=== PATIENT | male | born 1960 | race Caucasian/White ===

== ENCOUNTER 2018-10-07 01:43 | Outpatient (CLI) | payer MEDICARE, SELFPAY ==
[2018-10-07 13:26] LABS: ALT 42 U/L (12-78); AST 43 U/L (15-37); Albumin 4.1 g/dL (3.4-5.0); Alkaline Phosphatase 62 U/L (46-116); Anion Gap 9.7 mmol/L (3-11); BUN 11 mg/dL (7-18); Bilirubin, Total 0.6 mg/dL (0.2-1.0); CO2 28.3 mmol/L (21.0-32.0); CREATININE 0.45 mg/dL (0.70-1.30); Calcium 9.6 mg/dL (8.5-10.1); Chloride 103 mmol/L (98-107); Glucose 107 mg/dL (70-100); Potassium 4.4 mmol/L (3.5-5.1); Sodium 141 mmol/L (136-145); Total Protein 6.7 g/dL (6.4-8.2)
== END 2018-10-07 02:03 ==
PROVIDERS: PCP Family Medicine; Visit Provider Family Medicine
DX: E88.40 Mitochondrial metabolism disorder, unspecified (principal)
CPT/HCPCS: 36415; 80053

== ENCOUNTER 2018-10-10 01:44 | Outpatient (CLI) | payer MEDICARE, SELFPAY ==
--- NOTE | 2018-10-10 10:15 | MERGE_ITS ---
*[facility]* *[facility]* [address] [place] [address] Date of study: 10/10/2018 Transthoracic Echocardiography M-mode, complete 2D, complete spectral Doppler, and color Doppler *STUDY CONCLUSIONS* Summary: 1. Left ventricle: The cavity size was normal. Wall thickness was normal. Systolic function was normal. The estimated ejection fraction was 55-60%. Wall motion was normal; there were no regional wall motion abnormalities. 2. Right ventricle: The cavity size was normal. Systolic function was normal. 3. Inferior vena cava: The vessel was patent and normal in size. The respirophasic diameter changes were in the normal range (greater than or equal to 50%), consistent with normal central venous pressure. *PATIENT PRESENTATION* Height: 188cm ((74in) ) S/D Pressure: 115 / 75 Weight: 68kg ((149.7lb) ) BSA: 1.87m^2 Test start time: 10:30 AM. Test stop time: 11:30 AM. PERFORMING Unknown ORDERING Jonnie Norris REFERRING Jonnie Norris PERFORMING [facility] [address] LIGHT INSPECTOR RT Joanna Coronado)(NAKITA)RASHEEDA *PROCEDURE DATA* Procedure information: The patient was identified by two identifiers. This study was interpreted by [facility]. Pertinent images and digital data are archived for permanent storage and are available for subsequent review. Comparison was made to the study of 03/28/2016. Study status: Routine. Transthoracic echocardiography. M-mode, complete 2D, complete spectral Doppler, and color Doppler. A Transthoracic Echocardiogram was performed. Scanning was performed from the parasternal, apical, subcostal, and suprasternal notch acoustic windows. Images were obtained using an [id number] cardiac ultrasound machine. Image quality was adequate. Study completion: The patient tolerated the procedure well. There were no complications. 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 Wall thickness was normal. Systolic function was normal. The estimated ejection fraction was 55-60%. Wall motion was normal; there were no regional wall motion abnormalities. Findings consistent with diastolic dysfunction. There was no evidence of elevated ventricular filling pressure by Doppler parameters. Aortic valve: Trileaflet; mildly thickened leaflets. Mobility was not restricted. Doppler: Transvalvular velocity was within the normal range. There was no stenosis. There was no significant regurgitation. VTI ratio of LVOT to aortic valve: 0.8. Valve area (VTI): 2.5cm^2. Indexed valve area (VTI): 1.3cm^2/m^2. Peak velocity ratio of LVOT to aortic valve: 0.82. Valve area (Vmax): 2.6cm^2. Indexed valve area (Vmax): 1.4cm^2/m^2. Mean velocity ratio of LVOT to aortic valve: 0.79. Valve area (Vmean): 2.5cm^2. Indexed valve area (Vmean): 1.3cm^2/m^2. Mean gradient (S): 3.8mm Hg. Peak gradient (S): 6.6mm Hg. Aorta: Aortic root: The aortic root was normal in size. Ascending aorta: The ascending aorta was normal in size. Mitral valve: Mildly thickened leaflets. Mobility was not restricted. Doppler: Transvalvular velocity was within the normal range. There was no evidence for stenosis. There was trivial regurgitation. Valve area by pressure half-time: 3.6cm^2. Indexed valve area by pressure half-time: 1.9cm^2/m^2. Peak gradient (D): 2.3mm Hg. Left atrium: The atrium was normal in size. Right ventricle: The cavity size was normal. Systolic function was normal. Pulmonic valve: The pulmonary valve appears to be grossly normal. Doppler: Transvalvular velocity was within the normal range. There was no evidence for stenosis. There was trivial regurgitation. Tricuspid valve: Structurally normal valve. Doppler: Transvalvular velocity was within the normal range. There was no evidence for stenosis. There was trivial regurgitation. Pulmonary artery: The main pulmonary artery was normal-sized. Pulmonary systolic pressure was within the normal range, in the range of 20mm Hg to 25mm Hg. Right atrium: The atrium was normal in size. Pericardium: There was no pericardial effusion. Systemic veins: Inferior vena cava: Well visualized. The vessel was patent and normal in size. The respirophasic diameter changes were in the normal range (greater than or equal to 50%), consistent with normal central venous pressure. Baseline ECG: Normal sinus rhythm. Measurements Left ventricle Value Reference LV ID, ED, PLAX 4.4 cm 3.5 - 6.0 LV ID, ES, PLAX 3.0 cm 2.1 - 4.0 LV PW thickness, ED, PLAX 1.0 cm LV end-diastolic volume, 1-p A2C 99 ml LV ejection fraction, 1-p A2C 56 % LV end-diastolic volume, 1-p A4C 64 ml LV ejection fraction, 1-p A4C 61 % LV e', lateral 0.128 m/sec LV E/e', lateral 6 LV e', medial 0.101 m/sec LV E/e', medial 8 LV e', average 0.114 m/sec LV E/e', average 7 Ventricular septum Value Reference IVS thickness, ED, PLAX 1.0 cm LVOT Value Reference LVOT ID, A-P 2.0 cm LVOT area 3.1 cm^2 LVOT peak velocity, S 1.06 m/sec LVOT mean velocity, S 0.74 m/sec LVOT VTI, S 20.7 cm LVOT peak gradient, S 4.5 mm Hg LVOT mean gradient, S 2.4 mm Hg Stroke volume (SV), LVOT DP 64 ml Stroke index (SV/bsa), LVOT DP 34 ml/m^2 Aortic valve Value Reference Aortic valve peak velocity, S 1.3 m/sec Aortic valve mean velocity, S 0.93 m/sec Aortic valve VTI, S 26.0 cm Aortic mean gradient, S 3.8 mm Hg Aortic peak gradient, S 6.6 mm Hg VTI ratio, LVOT/AV 0.8 Aortic valve area, VTI 2.5 cm^2 Velocity ratio, peak, LVOT/AV 0.82 Aortic valve area, peak velocity 2.6 cm^2 Velocity ratio, mean, LVOT/AV 0.79 Aortic valve area, mean velocity 2.5 cm^2 Aortic valve area/bsa, mean velocity 1.3 cm^2/m^2 Aorta Value Reference Aortic root ID, ED 3.7 cm Ascending aorta ID, A-P, S 3.4 cm Left atrium Value Reference LA ID, A-P, ES 1.9 cm LA ID/bsa, A-P 1.0 cm/m^2 <=2.2 LA area, ES, A4C 19 cm^2 8.8 - 23.4 LA area, ES, A2C 18 cm^2 LA volume/bsa, ES, 1-p A4C 28 ml/m^2 LA volume, ES, 2-p 58 ml LA volume/bsa, ES, 2-p 31 ml/m^2 LA/aortic root ratio 0.52 Mitral valve Value Reference Mitral E-wave peak velocity 0.75 m/sec Mitral A-wave peak velocity 0.57 m/sec Mitral deceleration time 214 ms 150 - 230 Mitral pressure half-time 62 ms Mitral peak gradient, D 2.3 mm Hg Mitral E/A ratio, peak 1.32 Mitral valve area, PHT, DP 3.6 cm^2 Pulmonary veins Value Reference Pulmonary vein peak velocity, S 0.45 m/sec Pulmonary vein peak velocity, D 0.45 m/sec Pulmonary vein velocity ratio, peak, 1 S/D Pulmonary vein A-wave reversal peak 0.53 m/sec velocity Tricuspid valve Value Reference Tricuspid regurg peak velocity 2.6 m/sec Tricuspid peak RV-RA gradient 27.5 mm Hg Right atrium Value Reference RA area, ES, A4C 16.7 cm^2 8.3 - 19.5 Legend: (L) and (H) issa values outside specified reference range. I have personally reviewed the images and have reviewed and edited the reported findings. Electronically signed by Maria A Dupont 10/12/2018 07:06
== END 2018-10-10 02:04 ==
PROVIDERS: PCP Family Medicine; Visit Provider Family Medicine
DX: I34.0 Nonrheumatic mitral (valve) insufficiency (principal); I42.9 Cardiomyopathy, unspecified; E88.40 Mitochondrial metabolism disorder, unspecified; E78.5 Hyperlipidemia, unspecified
CPT/HCPCS: 93306

== ENCOUNTER → 2018-10-22 10:50 | Outpatient (BNVA) | payer MEDICARE, SELFPAY | PROVIDERS: PCP Family Medicine; Visit Provider Psychiatry & Neurology Neurology | DX: E88.40 Mitochondrial metabolism disorder, unspecified (principal); R51 Headache; M79.10 Myalgia, unspecified site | CPT/HCPCS: 99214 ==

== ENCOUNTER → 2018-12-23 11:02 | Outpatient (BNVA) | payer MEDICARE, SELFPAY | PROVIDERS: PCP Family Medicine; Visit Provider Nurse Practitioner Adult Health | DX: R51 Headache (principal); Z71.89 Other specified counseling | CPT/HCPCS: 99211; 99212 ==

== ENCOUNTER → 2019-01-20 13:09 | Outpatient (BNVA) | payer MEDICARE, SELFPAY | PROVIDERS: PCP Family Medicine; Visit Provider Nurse Practitioner Adult Health | DX: R51 Headache (principal); E88.40 Mitochondrial metabolism disorder, unspecified | CPT/HCPCS: 99212; 99213 ==

== ENCOUNTER → 2019-03-30 10:52 | Outpatient (BNVA) | payer MEDICARE, SELFPAY | PROVIDERS: PCP Family Medicine; Referring Provider Family Medicine; Visit Provider Nurse Practitioner Adult Health | DX: R51 Headache (principal) | CPT/HCPCS: 99212; 99213 ==

== ENCOUNTER → 2019-07-28 10:46 | Outpatient (BNVA) | payer MEDICARE, SELFPAY | PROVIDERS: PCP Family Medicine; Referring Provider Family Medicine; Visit Provider Nurse Practitioner Adult Health | DX: R51 Headache (principal) | CPT/HCPCS: 99213 ==

== ENCOUNTER 2019-10-15 02:52 | Outpatient (CLI) | payer MEDICARE, SELFPAY ==
[2019-10-15 12:14] LABS: ALT 40 U/L (16-63); AST 45 U/L (15-37); Albumin 4.2 g/dL (3.4-5.0); Alkaline Phosphatase 57 U/L (46-116); Anion Gap 10.7 mmol/L (3-11); BUN 9 mg/dL (7-18); Bilirubin, Total 0.6 mg/dL (0.2-1.0); CO2 28.3 mmol/L (21.0-32.0); Calcium 9.6 mg/dL (8.5-10.1); Chloride 99 mmol/L (98-107); Glucose 86 mg/dL (74-106); Potassium 4.3 mmol/L (3.5-5.1); Sodium 138 mmol/L (136-145); Total Protein 6.9 g/dL (6.4-8.2)
== END 2019-10-15 03:12 ==
PROVIDERS: PCP Family Medicine; Visit Provider Family Medicine
DX: E88.40 Mitochondrial metabolism disorder, unspecified (principal)
CPT/HCPCS: 36415; 80053

== ENCOUNTER → 2019-10-27 07:46 | Outpatient (BNVA) | payer MEDICARE, SELFPAY | PROVIDERS: PCP Family Medicine; Referring Provider Family Medicine; Visit Provider Nurse Practitioner Adult Health | DX: R51 Headache (principal) | CPT/HCPCS: 99213; 99441 ==

== ENCOUNTER → 2020-03-01 10:57 | Outpatient (BNVA) | payer MEDICARE, SELFPAY | PROVIDERS: PCP Nurse Practitioner; Referring Provider Family Medicine; Visit Provider Nurse Practitioner Adult Health | DX: R51 Headache (principal) | CPT/HCPCS: 99213 ==

== ENCOUNTER → 2020-07-12 10:12 | Outpatient (BNVA) | payer MEDICARE, SELFPAY | PROVIDERS: PCP Nurse Practitioner; Referring Provider Nurse Practitioner; Visit Provider Nurse Practitioner Adult Health | DX: R51.9 Headache, unspecified (principal); G89.29 Other chronic pain | CPT/HCPCS: 99214 ==

== ENCOUNTER → 2020-07-22 10:39 | Outpatient (BNVA) | payer MEDICARE, SELFPAY | PROVIDERS: PCP Nurse Practitioner; Referring Provider Nurse Practitioner; Visit Provider Physical Therapy Assistant | DX: Z12.11 Encounter for screening for malignant neoplasm of colon (principal); Z86.010 Personal history of colon polyps ==

== ENCOUNTER 2020-08-12 06:05 | Day surgery (SDC) | payer MEDICARE, SELFPAY ==
[2020-08-12 06:47] VITALS: BP 107/76; PULSE 73; RESP 16; TEMP 36.3; O2SAT 97
[2020-08-12] MEDS: Lactated Ringers 1,000 ML 80 ML IV (07:05)
--- NOTE | 2020-08-12 07:50 | BOWEL_PTH ---
PATIENT: Adam Cooley LOC: [facility] U#:[id number] AGE/SX: 59/M ROOM: RE08/12/[address]: Gracia Workman : 1960 BED: DIS: 08/12/2020 SPEC #: [id number] RECD: 08/12/20 12:39 STATUS: KELSEA REQ #: [id number] LES: 08/12/20 07:[address]: Gracia Workman DEPT: Surgical Specimen RECD BY: Munira Carnes ENTERED: 08/12/20 12:40 SP TYPE: Bowel OTHR DR: Tiffanie Zabala, PhD [employer] Tissues: 1 - BIOPSY BOWEL Procedures: GROSS AND MICRO LEVEL 4 Comments: [id number]
--- NOTE | 2020-08-12 08:08 | W.PM.DSUDISC ---
Discharge Plan Disposition Patient Disposition: HOME Condition: Good Discharge Details Reason For Visit: colon scope Attending Provider: Gracia Workman Primary Care Provider: Tiffanie Zabala Home Meds and New Rx's Prescriptions: No Action polyethylene glycol 3350 17 gram/dose powder 17 g PO ONCE Qty: 238 RF: 0 bisacodyl [Dulcolax (bisacodyl)] 5 mg tablet,delayed release (DR/EC) 5 mg PO ONCE Qty: 4 RF: 0 lorazepam 1 mg tablet 1 mg PO QHS PRN (Reason: anxiety) Qty: 30 RF: 1 artificial tears (gonioscopic) Drops 1 drp OP QID PRNRF: 0 Pred Mild 0.12 % drops,suspension 1 drp ophthalmic (eye) .OD RF: 0 aspirin [Ecotrin Low Strength] 81 MG tablet,delayed release (DR/EC) 81 mg PO DAILY RF: 0 cholecalciferol (vitamin D3) [Vitamin D3] 400 UNIT tablet 400 unit PO DAILY RF: 0 zatyeocgybu-jorllouzt-tel C-Mn 1 EACH tablet 2 tab PO DAILY RF: 0 FIBER 170 GM powder 1 dose PO TID RF: 0 Krill Oil ([place] 3 and 6) 1 EACH capsule 1 ea PO DAILY RF: 0 coenzyme Q10 200 MG capsule 200 mg PO DAILY Qty: 90 RF: 4 zinc gluconate 50 MG tablet 50 mg PO DAILY RF: 0 saw palmetto 450 MG capsule 450 mg PO DAILY RF: 0 CREATINE PO DAILY PLUS RF: 0 Ubrelvy 100 mg tablet 100 mg PO ONCE Qty: 10 RF: 3 pravastatin [Pravachol] 40 mg tablet 40 mg PO DAILY Qty: 90 RF: 3 Discharge Instructions Additional Instructions: Findings:x1 polyp Follow up:will send a letter in ~3wks when to repeat the scope Please call if you develop: fevers >101.5 Nausea or Vomiting Abdominal pain that is not transient DAY SURGERY UNIT POST COLONOSCOPY INSTRUCTIONS 1. Because there will be medication in your system for the next 24 hours, you may feel a little sleepy. Your coordination will be affected. Therefore: a. Do not drive or operate dangerous equipment for 24 hours. b. Do not drink alcohol beverages for 24 hours (not even beer). c. Plan to go home and rest for the day. 2. Generally there are no restrictions on your activity after a day or so has gone by, but you may feel a bit fatigued for a few days. 3 After you arrive home you may have a light meal and return to a normal diet as you can tolerate it without feeling sick to your stomach. 4. After surgery, you may feel pain or discomfort. This should be only transient, but if it persists please contact your doctor. 5. If there are any questions regarding the findings of your procedure, please feel free to contact your doctor. 6. If you are unable to contact your doctor with a problem, contact the hospital at [phone]. 7. Continue all your regular medications unless directed otherwise. I understand the above instructions and have no questions. Signature of Patient or Responsible Adult Escort Date/Time Name of Responsible Adult Escort Signature of Nurse Date/Time Activity:: No lifting over 20 pounds or strenuous activity x24 hours. Diet:: Small light meals x24 hours Discharge Orders Discharge Orders: Discharge Order (Routine); Ordered 08/12/20 Ordered By: Gracia Workman DS: Diagnosis Discharge Diagnosis (1) Gastroesophageal reflux disease with esophagitis: Status: Chronic (2) PONV (postoperative nausea and vomiting): Status: Acute (3) Mitochondrial cytopathy: Status: Chronic (4) Adenomatous polyps: Status: Acute
--- NOTE | 2020-08-12 08:11 | W.COLOREPORT ---
Date of service: 08/12/20 Time of Service: 08:11 Colonoscopy Report Date of procedure: 08/12/20 Pre-op diagnosis general: A polyps Post-op diagnosis procedure note: same Surgeon: Gracia Workman Anesthesia proc note operative: GETA Estimated blood loss (mL): 1 Pathology: other Complications: None Disposition: PACU Prep: Miralax/Dulcolax Retraction Time: 10 Procedure Description: After informed consent was obtained the patient was taken to the procedure room and placed in a left decubitous position. Monitors were applied and a time out was done. The patients name, date of , procedure, allergies to medications and metal in their body was reviewed. The patient was then sedated. Once sedated and comfortable a rectal exam was done. External exam was normal. Internal exam revealed a normal sphincter tone and no palpable masses. The scope was then introduced and retrofelexed. no internal hemorrhoids were identified. The scope was then advanced to the cecum w/out difficulty. The TI and appendiceal orifice were identified. The prep was good. The scope was then slowly retracted over 10 minutes back into the rectum. Polyps were removed at 70cm x1 w/ cold biting forcept. The polyp was flat, less than 5 mm in size, with no ulceration. All specimen is retrieved and no bleeding is noted. There are no AVMs or diverticula apparent. The mucosa is otherwise pink and healthy. the scope was removed and the patient was woken up and taken back to Same day surgery in stable condition. The patient tolerated the procedure well and there were no immediate complications. Follow up: The patient should follow up in 7- path pd, and if patient is still healthy for anesthesia, years unless they develop changes in bowel habits or other new gastrointestinal complaints.
[2020-08-12 08:39] VITALS: BP 102/71; PULSE 65; RESP 16; TEMP 36.3; O2SAT 100
== END 2020-08-12 09:16 | disposition home or self-care (01) ==
PROVIDERS: PCP Nurse Practitioner; Visit Provider Surgery
PROC: 0DJD8ZZ Inspection of Lower Intestinal Tract, Via Natural or Artificial Opening Endoscopic (ICD-10-PCS; CPT 45378; principal; 2020-08-12 07:30)
DX: Z12.11 Encounter for screening for malignant neoplasm of colon (principal); D12.5 Benign neoplasm of sigmoid colon; Z86.010 Personal history of colon polyps
CPT/HCPCS: 45380; 88305; J2001

== ENCOUNTER 2020-08-30 03:28 | Outpatient (CLI) | payer MEDICARE, SELFPAY ==
[2020-08-30 12:43] LABS: Calculated LDL 103 mg/dL (<100); Cholesterol 178 mg/dL (<200); HDL Cholesterol 52 mg/dL (40-60); Triglyceride 115 mg/dL (<150)
== END 2020-08-30 03:29 | disposition home or self-care (01) ==
LOC: LOS 03:30
PROVIDERS: PCP Nurse Practitioner; Visit Provider Nurse Practitioner
DX: E78.5 Hyperlipidemia, unspecified (principal)
CPT/HCPCS: 36415; 80061

== ENCOUNTER 2020-10-04 02:11 | Outpatient (CLI) | payer MEDICARE, SELFPAY ==
--- NOTE | 2020-10-04 06:15 | DI.US_ITS ---
APPROVED REPORT EXAM: Comprehensive 2D, Doppler, and color-flow Echocardiogram Patient Location: Out-Patient Safety Tech: Lesley Gamble RDCS (AE) Indications: HTN Other Information Study Quality: Good Conclusion Left Ventricle : The left ventricle is normal size. The left ventricular systolic function is normal. The left ventricular ejection fraction is within the normal range. There is normal left ventricular wall thickness. There is normal LV segmental wall motion. The left ventricular diastolic function is normal. LVEF is 59%. Right Ventricle : The right ventricle is normal size. The right ventricular systolic function is norm al. The RVSP is 20.3mmHg. Atria : The left atrium size is normal. The right atrium size is normal. Valves: There are no hemodynamically significant valvular lesions. Great Vessels : The aortic root is normal in size. The ascending aorta is normal in size. Aortic arch is normal in caliber. IVC is normal in size and collapses >50% with inspiration. Compared to study from 10/10/2018, there is no significant change. Wall motion Left Ventricle The left ventricle is normal size. The left ventricular systolic function is normal. The left ventric ular ejection fraction is within the normal range. There is normal left ventricular wall thickness. T here is normal LV segmental wall motion. The left ventricular diastolic function is normal. There is no ventricular septal defect visualized. LVEF is 59%. Right Ventricle The right ventricle is normal size. The right ventricular systolic function is normal. The RVSP is 20 .3mmHg. Atria The left atrium size is normal. The right atrium size is normal. The interatrial septum is intact wit h no evidence for an atrial septal defect. Aortic Valve The aortic valve is normal in structure. Aortic valve is trileaflet. There is no aortic valvular sten osis. No aortic regurgitation is present. Mitral Valve The mitral valve is normal in structure. No evidence of mitral valve stenosis. Trace mitral regurgita tion. Tricuspid Valve The tricuspid valve is normal in structure. There is no tricuspid valve stenosis. Trace to mild tricu spid regurgitation. Pulmonic Valve The pulmonary valve is normal in structure. There is no pulmonic valvular stenosis. Trace pulmonic re gurgitation. Great Vessels The aortic root is normal in size. The ascending aorta is normal in size. Aortic arch is normal in ca liber. IVC is normal in size and collapses >50% with inspiration. Pericardium There is no pericardial effusion. 2D Dimensions IVSD d PLAX 0.96 cm M: 0.6-1.2 LV Vol A2C d MOD 111.5 mL LVPW d PLAX 0.96 cm M: 0.6 - 1.2 LV Vol A4C d MOD 100.0 mL LVID d PLAX 4.46 cm M: 4.2 - 5.8 LA vol/ BSA A2C s A-L 20.2 mL/m2 LVDs 3.00 cm M: 2.5 - 4.0 LA vol/ BSA A4C s A-L 17.8 mL/m2 Ao Root d 3.36 cm M: 3.1 - 3.7 LA Vol/ BSA Biplane s A-L 19.6 mL/m2 RA Area A4C 14.54 cm2 LA Area A4C s MOD 13.70 cm2 RA Vol/ BSA A4C s A-L 18.1 mL/m2 LA Area A2C s MOD 15.13 cm2 Ao Asc Diam d 3.35 cm M: 2.6 - 3.4 LV EF A4C MOD 58.5 % LV EF Teichholz 60.0 % LV EF A2C MOD 58.0 % LVEF (Dunn's) 58.21 % M: 52 - 72 LV EF Biplane MOD 58.2 % LV Volume 80.46 mL M: 62 - 150 SV 61.38 mL LV Volume Index 42.34 mL/m2 M: 34 - 74 SV Index 32.29 mL/m2 LV Vol Biplane MOD 105.5 mL FS 31.75 % M-Mode TAPSE 2.83 cm (M/F) >1.7 LV Diastology MV E' medial 0.116 (>0.07 m/s) E/A Ratio 1.4 LV E/e MED 7.95 (<14) MV E Vmax 0.93 (0.4-1.3 m/s) MV E' lateral 0.143 (>0.1 m/s) MV A Vmax 0.65 (0.4-1.3 m/s) LV E/e LAT 6.45 (<14) MV E/A Ratio 1.39 MV E/E' medial 7.97 MV E/E' lateral 6.50 Aortic Valve LVOT Area 3.61 cm2 AoV Area Vmax 3.06 cm2 LVOT Vmax 1.00 m/s AoV Area/ BSA (Vmax) 1.61 cm2/m2 LVOT Mean Shlomo. 0.73 m/s DIPIKA Mean Shlomo. 3.30 cm2 LVOT Peak Grad 4.0 mmHg DIPIKA Mean Shlomo. Index 1.73 cm2/m2 LVOT Mean Grad 2.3 mmHg LVOT VTI 0.211 m LVOT Diam s 2.10 cm AoV Vmax 1.18 m/s Velocity Ratio 0.84 AoV Mean Shlomo. 0.79 m/s AoV Peak Grad 5.6 mmHg LVOT SV 75.92 mL AoV Mean Grad 2.8 mmHg AoV VTI 0.253 m AoV Area VTI 3.00 cm2 AoV Area/ BSA (VTI) 1.58 cm/m2 Mitral Valve MV DT 159 (160-240 msec) MV PHT 46 msec MV Area PHT 4.78 cm2 MV VTI 0.284 m MV Area VTI 2.68 (4.0-6.0 cm2) Pulmonary Valve PV Vmax 0.71 (0.5-1.5 m/s) RVOT Peak Gr. 1.69 mmHg PV Peak Grad 2.0 mmHg RVOT Mean Gr. 0.95 mmHg PV Mean Grad 1.5 mmHg RVOT VTI 0.169 m PV VTI 0.170 m RVOT Vmax 0.65 m/s Tricuspid Valve TR Peak Grad 17.2 mmHg TR Vmax 2.08 m/s RA Pressure 3.00 mmHg RVSP (TR) 20.3 mmHg
== END 2020-10-04 02:31 ==
PROVIDERS: PCP Nurse Practitioner; Visit Provider Nurse Practitioner
DX: I10 Essential (primary) hypertension (principal)
CPT/HCPCS: 93306

== ENCOUNTER → 2021-01-10 08:23 | Outpatient (BNVA) | payer MEDICARE, SELFPAY | PROVIDERS: PCP Nurse Practitioner; Visit Provider Nurse Practitioner Adult Health | DX: R51.9 Headache, unspecified (principal); Z79.899 Other long term (current) drug therapy | CPT/HCPCS: 99212; 99213 ==

== ENCOUNTER 2021-10-11 01:19 | Outpatient (CLI) | payer MEDICARE, SELFPAY ==
[2021-10-11 12:18] LABS: Calculated LDL 136 mg/dL (<100); Cholesterol 219 mg/dL (<200); HDL Cholesterol 62 mg/dL (40-60); TSH (W/Ref FT4) 2.65 uIU/mL (0.36-3.74); Triglyceride 107 mg/dL (<150)
== END 2021-10-11 01:20 | disposition home or self-care (01) ==
LOC: LBO 01:19
PROVIDERS: PCP Nurse Practitioner; Visit Provider Nurse Practitioner
DX: E78.5 Hyperlipidemia, unspecified (principal); R68.89 Other general symptoms and signs
CPT/HCPCS: 36415; 80061; 84443

== ENCOUNTER → 2022-01-09 08:19 | Outpatient (BNVA) | payer MEDICARE, SELFPAY | PROVIDERS: PCP Nurse Practitioner; Referring Provider Nurse Practitioner; Visit Provider Nurse Practitioner Adult Health | DX: G43.709 Chronic migraine without aura, not intractable, without status migrainosus (principal) | CPT/HCPCS: 99213 ==

== ENCOUNTER 2022-09-25 18:26 | Outpatient (REF) | payer MEDICARE, SELFPAY ==
[2022-09-25 21:14] LABS: HCT 42.9 % (40.0-50.0); HGB 14.5 g/dL (13.5-17.5); MCH 31.5 pg (27.0-33.0); MCHC 33.8 % (32.0-36.0); MCV 93 fL (80-95); MPV 10.7 fL (8.0-11.0); Platelet Count 259 10^3/uL (130-400); RBC 4.61 10^6/uL (4.36-5.78); RDW 12.5 % (11.8-14.1); RDW-SD 43.1 fL; WBC 7.88 10^3/uL (4.4-10.8)
[2022-09-25 21:30] LABS: ALT 39 U/L (16-63); AST 43 U/L (15-37); Albumin 4.1 g/dL (3.4-5.0); Alkaline Phosphatase 62 U/L (46-116); BUN 12 mg/dL (7-18); Bilirubin, Total 0.6 mg/dL (0.2-1.0); CREATININE 0.5 mg/dL (0.70-1.30); Calcium 9.4 mg/dL (8.5-10.1); Calculated LDL 131 mg/dL (<100); Chloride 102 mmol/L (98-107); Cholesterol 217 mg/dL (<200); Estimated GFR 116.77 (mL/min/1.73m2); Glucose 83 mg/dL (74-106); HDL Cholesterol 53 mg/dL (40-60); Potassium 4.5 mmol/L (3.5-5.1); Sodium 140 mmol/L (136-145); Total Protein 6.8 g/dL (6.4-8.2); Triglyceride 169 mg/dL (<150)
== END 2022-09-25 18:27 | disposition home or self-care (01) ==
LOC: NCHCN 18:26
PROVIDERS: PCP Nurse Practitioner Family; Visit Provider Nurse Practitioner Family
DX: E78.5 Hyperlipidemia, unspecified (principal); E88.40 Mitochondrial metabolism disorder, unspecified; R51.9 Headache, unspecified; R68.89 Other general symptoms and signs
CPT/HCPCS: 80053; 80061; 85027

== ENCOUNTER 2023-11-11 21:58 | Outpatient (REF) | payer MEDICARE, SELFPAY ==
[2023-11-11 19:15] LABS: HCT 45.6 % (40.0-50.0); HGB 15.1 g/dL (13.5-17.5); MCH 31.5 pg (27.0-33.0); MCHC 33.1 % (32.0-36.0); MCV 95 fL (80-95); MPV 10.1 fL (8.0-11.0); Platelet Count 262 10^3/uL (130-400); RBC 4.79 10^6/uL (4.36-5.78); RDW 12.5 % (11.8-14.1); RDW-SD 44.1 fL; WBC 5.18 10^3/uL (4.4-10.8)
[2023-11-11 19:30] LABS: ALT 46 U/L (16-63); AST 47 U/L (15-37); Albumin 4.4 g/dL (3.4-5.0); Alkaline Phosphatase 69 U/L (46-116); Anion Gap 8.1 mmol/L (3-11); BUN 9 mg/dL (7-18); Bilirubin, Total 0.7 mg/dL (0.2-1.0); CO2 29.9 mmol/L (21.0-32.0); CREATININE 0.4 mg/dL (0.70-1.30); Calcium 9.8 mg/dL (8.5-10.1); Calculated LDL 116 mg/dL (<100); Chloride 102 mmol/L (98-107); Cholesterol 195 mg/dL (<200); Estimated GFR 123.36 (mL/min/1.73m2); Glucose 84 mg/dL (74-106); HDL Cholesterol 61 mg/dL (40-60); Potassium 4.4 mmol/L (3.5-5.1); Sodium 140 mmol/L (136-145); Total Protein 7.2 g/dL (6.4-8.2); Triglyceride 92 mg/dL (<150)
== END 2023-11-11 21:59 | disposition home or self-care (01) ==
LOC: LBN 21:58
PROVIDERS: PCP Nurse Practitioner Family; Visit Provider Nurse Practitioner Family
DX: E78.5 Hyperlipidemia, unspecified (principal); Z00.00 Encounter for general adult medical examination without abnormal findings; E88.40 Mitochondrial metabolism disorder, unspecified; F41.9 Anxiety disorder, unspecified; K21.00 Gastro-esophageal reflux disease with esophagitis, without bleeding
CPT/HCPCS: 80053; 80061; 85027

== ENCOUNTER → 2023-11-27 03:30 | Outpatient (CLI) | payer MEDICARE, SELFPAY ==
--- NOTE | 2023-11-27 12:27 | DI.US_ITS ---
APPROVED REPORT EXAM: Comprehensive 2D, Doppler, and color-flow Echocardiogram Patient Location: Out-Patient Medical Transport Specialist: Lesley Gamble RDCS (AE) Indications: HTN, Mitochondrial cytopathy Other Information Study Quality: Adequate Conclusion Normal left ventricular wall thickness and chamber size. Ejection fraction is 55 to 60%. Wall motio n is normal Normal right ventricular size and function Both atria are normal in size Aortic valve is trileaflet, mildly thickened leaflets no stenosis or regurgitation There is no additional structural or hemodynamically significant valvular disease Estimated right ventricular systolic pressure is 20 mmHg Wall motion Left Ventricle The left ventricle is normal size. The left ventricular systolic function is normal. The left ventric ular ejection fraction is within the normal range. There is normal left ventricular wall thickness. T here is normal LV segmental wall motion. There is no ventricular septal defect visualized. LVEF is 55 -60%. Right Ventricle The right ventricle is normal size. The right ventricular systolic function is normal. Atria The left atrium size is normal. The right atrium size is normal. The interatrial septum is intact wit h no evidence for an atrial septal defect. Aortic Valve Mildly thickened aortic valve leaflets Aortic valve is trileaflet. There is no aortic valvular stenos is. No aortic regurgitation is present. Mitral Valve The mitral valve is normal in structure. No evidence of mitral valve stenosis. Trace mitral regurgita tion. Tricuspid Valve The tricuspid valve is normal in structure. There is no tricuspid valve stenosis. Trace tricuspid reg urgitation. The RVSP is 19.8 mmHg. Pulmonic Valve The pulmonary valve is normal in structure. There is no pulmonic valvular stenosis. Trace pulmonic re gurgitation. Great Vessels The aortic root is normal in size. The ascending aorta is normal in size. Aortic arch is normal in ca liber. IVC is normal in size and collapses >50% with inspiration. Pericardium There is no pericardial effusion. 2D Dimensions IVSD d PLAX 0.77 cm M: 0.6-1.2 Ao Root d 3.25 cm M: 3.1 - 3.7 LVPW d PLAX 0.77 cm M: 0.6 - 1.2 Ao Asc Diam d 3.32 cm M: 2.6 - 3.4 LVID d PLAX 4.41 cm M: 4.2 - 5.8 LVDs 3.00 cm M: 2.5 - 4.0 LV EF Teichholz 60.1 % FS 31.84 % LV EDV (Teich) 88.0 mL LV ESV (Teich) 35.1 mL M-Mode TAPSE 2.30 cm (M/F) >1.7 Auto EF LV EDV A4C 96.4 mL LV EDV A2C 115.4 mL LV EDV BP 105.0 mL LV ESV A4C 39.8 mL LV ESV A2C 45.3 mL LV ESV BP 42.5 mL LVEF(%) A4C 58.7 % LVEF(%) A2C 60.8 % LVEF(%) BP 59.5 % LV SV A4C 56.6 ml LV SV A2C 70.1 ml LV SV BP 62.5 ml LV CO A4C 3.8 L/min LV CO A2C 4.7 L/min LV CO BP 4.3 L/min HR A4C 67.80 BPM HR A2C 67.14 BPM LV EDV Index (BP) LA Volume LA Length A4C 4.5 cm LA Length A2C 4.9 cm LA Area A4C s 15.14 cm2 LA Area A2C s 13.64 cm2 LA Vol A4C A-L 43.39 mL LA Vol A2C A-L 32.08 mL LA Vol Biplane A-L 39.1 mL LA Vol/BSA A4C A-L LA Vol/BSA A2C A-L LA Vol/BSA BP A-L 21.1 mL/m2 LA Vol A4C MOD 39.4 mL LA Vol A2C MOD 28.8 mL LA Vol BP MOD 35.2 mL RA Volume RA Area A4C 15.5 cm2 RA ESV A4C (A-L) 40.1mL RA Vol/BSA A4C A-L RA Length A4C 5.1 cm RA ESV A4C (MOD) 38.5mL LV Diastology MV E' medial 0.118 (>0.07 m/s) MV E Vmax 0.89 (0.4-1.3 m/s) MV E/E' MED 7.57 (<14) MV A Vmax 0.80 (0.4-1.3 m/s) MV E' lateral 0.134 (>0.1 m/s) E/A Ratio 1.1 MV E/E' LAT 6.66 (<14) MV E' Average 0.126 m/s MV E/E'(average) 7.09 Aortic Valve AoV Vmax 1.22 m/s LVOT Vmax 1.07 m/s AoV Peak Grad 5.9 mmHg LVOT Peak Grad 4.6 mmHg AoV Area (Vmax) 2.79 cm2 LVOT VTI 0.237 m AoV VTI 0.275 m LVOT Mean Grad 2.4 mmHg AoV Mean Shlomo. 0.82 m/s LVOT SV 75.18 mL AoV Mean Grad 3.1 mmHg LVOT Diam s 2.00 cm AoV Area (VTI) 2.74 cm2 Velocity Ratio 0.88 Mitral Valve MV DT 206 (160-240 msec) MV Vmax TIPS 0.81 m/s MV Mean Grad 1.2 (<2mmHg) MV VTI 0.263 m Pulmonary Valve PV Vmax 0.86 (0.5-1.5 m/s) RVOT Vmax 0.75 m/s PV Peak Grad 3.0 mmHg RVOT Peak Gr. 2.3 mmHg PV Mean Shlomo 0.62 m/s RVOT VTI 0.174 m PV Mean Grad 1.7 mmHg RVOT Mean Gr. 1.2 mmHg Tricuspid Valve RA Pressure 3.00 mmHg TR Vmax 2.05 m/s TV S' 0.15 m/s TR Peak Grad 16.7 mmHg RVSP (TR) 19.8 mmHg
== END ==
PROVIDERS: PCP Nurse Practitioner Family; Visit Provider Nurse Practitioner Family
DX: I10 Essential (primary) hypertension (principal); E88.40 Mitochondrial metabolism disorder, unspecified
CPT/HCPCS: 93306

== ENCOUNTER 2024-07-29 11:10 | Outpatient (CLI) | payer MEDICARE, SELFPAY ==
--- NOTE | 2024-07-29 11:05 | DI.RAD_ITS ---
Exam(s) XR ABDOMEN FLAT UPRIGHT EXAM: XR ABDOMEN FLAT UPRIGHT CLINICAL HISTORY: rule out blockage, K59.00. TECHNIQUE: 2D digital imaging was performed. COMPARISON: No exams were available for comparison FINDINGS: Two views-supine and upright There is abundant fecal material noted throughout the colon. Colon diameter is upper normal. There does not appear to be prominent fecal rectal impaction. There is no evidence of bowel obstruction no r free air. Stomach contains air but is not overly distended. No calcifications seen over the kidne ys nor along the course of the ureters. Phleboliths are noted in both sides of the pelvis. Regional bones of the appear unremarkable, as do the sacroiliac joints. There is some narrowing of the L4-5 disc space noted which appears relatively symmetrical. IMPRESSION: No evidence of bowel obstruction or free air. Abundant fecal material noted throughout the length of the colon. Correlation with any clinical sign s of constipation recommended. DATA REPOSITORY: RADIATION DOSE DELIVERED:
== END 2024-07-29 11:30 ==
LOC: DI 11:13
PROVIDERS: PCP Nurse Practitioner Family; Visit Provider Nurse Practitioner Family
DX: K59.00 Constipation, unspecified (principal)
CPT/HCPCS: 36415; 74019; 84439; 84443

== ENCOUNTER 2024-07-29 12:03 | Outpatient (CLI) | payer MEDICARE, SELFPAY ==
[2024-07-29 13:27] LABS: TSH (W/Ref FT4) 3.86 uIU/mL (0.36-3.74)
== END 2024-07-29 12:04 | disposition home or self-care (01) ==
LOC: LBO 12:06
PROVIDERS: PCP Nurse Practitioner Family; Visit Provider Nurse Practitioner Family
DX: K59.00 Constipation, unspecified
CPT/HCPCS: 36415; 84439; 84443

== ENCOUNTER 2024-11-03 10:43 | Outpatient (CLI) | payer MEDICARE, SELFPAY ==
[2024-11-03 12:57] LABS: ALT 71 U/L (16-63); AST 65 U/L (15-37); Alkaline Phosphatase 67 U/L (46-116); Anion Gap 8.6 mmol/L (3-11); BUN 9 mg/dL (7-18); Bilirubin, Total 0.5 mg/dL (0.2-1.0); CO2 28.4 mmol/L (21.0-32.0); CREATININE 0.4 mg/dL (0.70-1.30); Calcium 9.5 mg/dL (8.5-10.1); Calculated LDL 113 mg/dL (<100); Chloride 101 mmol/L (98-107); Cholesterol 193 mg/dL (<200); Glucose 91 mg/dL (74-106); HDL Cholesterol 61 mg/dL (>or=40); Potassium 4.3 mmol/L (3.5-5.1); Sodium 138 mmol/L (136-145); Total Protein 7.1 g/dL (6.4-8.2); Triglyceride 98 mg/dL (<150)
== END 2024-11-03 10:44 | disposition home or self-care (01) ==
LOC: LOS 10:44
PROVIDERS: PCP Nurse Practitioner Family; Visit Provider Nurse Practitioner Family
DX: Z00.00 Encounter for general adult medical examination without abnormal findings (principal); E78.5 Hyperlipidemia, unspecified; R51.9 Headache, unspecified
CPT/HCPCS: 36415; 80053; 80061